=== PATIENT | male | born 1975 | race Caucasian/White ===

== ENCOUNTER → 2018-02-16 | Outpatient (CLI) | payer BC ==
--- NOTE | 2018-02-16 15:15 | KCIC ---
EXAM: Lumbar spine, 5 views. HISTORY: Pain. COMPARISON: None. FINDINGS: Frontal, lateral, bilateral oblique and coned sacral views of the lumbar spine are obtained. There is no significant listhesis. The vertebral sanford are normal in height. There is disc space narrowing and vacuum phenomenon with facet arthropathy at L5-S1. IMPRESSION: 1. Degenerative change at the lumbosacral junction. 2. No acute osseous finding. Electronically signed by: Emani Moya MD (02/16/2018 3:12 PM) [facility] [place]
== END | disposition home or self-care (01) ==
LOC: KCIC 12:01
PROVIDERS: ATTEND Family Medicine
DX: M47.896 Other spondylosis, lumbar region (principal); M48.07 Spinal stenosis, lumbosacral region; M12.88 Other specific arthropathies, not elsewhere classified, other specified site
CPT/HCPCS: 72110